=== PATIENT | female | born 1990 | race Hispanic/Latino ===

== ENCOUNTER 2017-12-17 14:12 | Emergency (ER) | payer BC ==
[~2017-12-17] VITALS: Ht 170.2 cm; Wt 136.1 kg
[2017-12-17] MEDS ORDERED: SODIUM CHLORIDE 0.9% 1000ML 1,000 ML IV STA (14:25)
[2017-12-17] MEDS ORDERED: KETOROLAC TROMETHAMINE 30 MG/ML VIAL IV STA (14:25)
[2017-12-17] MEDS ORDERED: DIPHENHYDRAMINE HCL INJ 50 MG/ML VIAL IV ONE (14:30)
[2017-12-17] MEDS ORDERED: METOCLOPRAMIDE HCL 10 MG/2ML VIAL IV ONE (14:30)
[2017-12-17 15:03] LABS: PREGNANCY TEST, URINE NEGATIVE (NEGATIVE)
[2017-12-17 15:07] LABS: CLARITY,URINE CLEAR (CLEAR); COLOR,URINE YELLOW (YELLOW)
[2017-12-17 15:08] LABS: BILIRUBIN,URINE NEGATIVE (NEGATIVE); KETONES,URINE NEGATIVE (NEGATIVE); LEUKOCYTE ESTERASE ,URINE TRACE (NEGATIVE); NITRITE,URINE NEGATIVE (NEGATIVE); PROTEIN,URINE DIPSTICK NEGATIVE (NEGATIVE); URINE UROBILINOGEN 0.2 mg/dL (0.2 - 1)
[2017-12-17 15:08] LABS: BASOPHILS # (AUTO) 0.1 (0.0-0.1); BASOPHILS % 0.4 % (0.0-1.0); EOSINOPHILS # (AUTO) 0.2 (0.0-0.4); EOSINOPHILS % 1.4 % (0.0-6.0); HEMATOCRIT 41.5 % (34.2-44.1); HEMOGLOBIN 13.9 g/dL (12.0-16.0); LYMPHOCYTES # (AUTO) 3.1 (1.0-3.2); LYMPHOCYTES % 27.5 % (18.0-39.1); MEAN CORPUSCULAR HEMOGLOBIN 30.9 pg (28-32); MEAN CORPUSCULAR HGB CONC 33.5 g/dL (31-35); MEAN CORPUSCULAR VOLUME 92.2 fL (81-99); MONOCYTES # (AUTO) 0.5 (0.2-0.8); MONOCYTES % 4.6 % (4.4-11.3); NEUTROPHILS # (AUTO) 7.4 (2.1-6.9); NEUTROPHILS % 65.8 % (38.7-80.0); PLATELET COUNT 332 x10e3/uL (140-360); RED CELL DISTRIBUTION WIDTH 12.1 % (11.7-14.4)
[2017-12-17 15:20] LABS: BACTERIA,URINE FEW /HPF; EPITHELIAL CELLS,URINE MODERATE /LPF
[2017-12-17 15:32] LABS: ALANINE AMINOTRANSFERASE 13 IU/L (0-55); ALBUMIN 3.7 g/dL (3.5-5.0); ALKALINE PHOSPHATASE 62 IU/L (40-150); ANION GAP 8.9 mmol/L (8-16); BLOOD UREA NITROGEN 7 mg/dL (7-26); BUN/CREATININE RATIO 11 (6-25); CALCIUM 9.5 mg/dL (8.4-10.2); CARBON DIOXIDE 26 mmol/L (22-29); CHLORIDE 107 mmol/L (98-107); CREATININE, SERUM 0.64 mg/dL (0.57-1.11); EST GLOMERULAR FILTRATION RATE > 60 ML/MIN (60-); GLUCOSE 96 mg/dL (74-118); POTASSIUM 3.9 mmol/L (3.5-5.1); SODIUM 138 mmol/L (136-145)
--- NOTE | 2017-12-17 15:54 | Diagnostic Imaging Report ---
History: Blurred vision Comparison studies: None Technique: Axial images were obtained from the skull base to the vertex. Coronal and sagittal reconstructions obtained from the axial data. Findings: Scalp/skull: No abnormalities. No fractures, blastic or lytic lesions. Extra-axial spaces: No masses. No fluid collections. Brain sulci: Appropriate for age. Ventricles: Normal in size and configuration. No hydrocephalus. Parenchyma: No abnormal densities. No masses, hemorrhage, acute or chronic cortical vascular insults. Sellar/suprasellar region: No abnormalities Craniocervical junction: Patent foramen magnum. No Chiari one malformation. IMPRESSION: No abnormalities . Signed by: DR Mario Puckett M.D. on 12/17/2017 3:51 PM
[2017-12-22] MEDS ORDERED: Acetamin/Butalbital/Caffeine PO (06:37)
== END 2017-12-17 17:56 | disposition home or self-care (01) ==
LOC: ER 14:12
DX: G44.211 Episodic tension-type headache, intractable (principal)
CPT/HCPCS: 36415; 70450; 80053; 81001; 81025; 85025; 87086; 99284; J1200; J1885; J2765; J7030

== ENCOUNTER 2017-12-19 20:56 | Inpatient (IN) | payer BC ==
[~2017-12-19] VITALS: Ht 165.1 cm; Wt 148.8 kg
--- OUTSIDE RECORDS SUMMARY | 2017-12-19 20:58 | XMS REPORT ---
Author [facility] Address Unknown Phone Unavailable Care Team Providers Care Web Design Instructor Name Role Phone PAT TOVAR Unavailable Unavailable Problems This patient has no known problems. Allergies, Adverse Reactions, Alerts This patient has no known allergies or adverse reactions. Medications This patient has no known medications. Results Test Description Test Time Test Comments Text Results Atomic Results Result Comments CT BRAIN WO [address] [address] Patient Name: JAYJAY BERNAL MR #: [id number] : 1990 Age/Sex: 27/F Req # : [id number] Adm Physician: Ordered by: PAT TOVAR MD Report #: [id number] Location: ER Room/Bed: Procedure: [id number] CT/CT BRAIN WO Exam Date: Exam Time: REPORT STATUS: Signed History: Blurred vision Comparison studies: None Technique: Axial images were obtained from the skull base to the vertex. Coronal and sagittal reconstructions obtained from the axial data. Findings: Scalp/skull: No abnormalities. No fractures, blastic or lytic lesions. Extra-axial spaces: No masses. No fluid collections. Brain sulci: Appropriate for age. Ventricles: Normal in size and configuration. No hydrocephalus. Parenchyma: No abnormal densities. No masses, hemorrhage, acute or chronic cortical vascular insults. Sellar/ suprasellar region: No abnormalities Craniocervical junction: Patent foramen magnum. No Chiari one malformation. IMPRESSION: No abnormalities . Signed by: DR Mario Puckett M.D. on 12/17/2017 3:51 PM Dictated By: MARIO WALLER MD [id number] Transcribed By: DELL on 12/17/17 978 COPY TO: PAT TOVAR MD
--- OUTSIDE RECORDS SUMMARY | 2017-12-19 20:58 | XMS REPORT | Continuity of Care Document ---
Author Author [facility] Organization [facility] Address [address] [place] [address] Phone Unavailable Care Team Providers Care Scientific Diver Name Role Phone NO, PCP PCP Unavailable Insurance Providers Guarantor Justina Bernal Address [address] [place] [address] Email PT DECLINED [facility]ayer [facility] Policy Number [id number] Subscriber's Name Regan Nolan Relationship 01 Group Number [id number] Group Name [employer] NOW Effective Date 17 Advance Directives Directive Response Recorded Date/Time Does the patient have an advance directive? No 12/17/17 4:39pm If yes, is advance directive on file with [facility]? No 12/17/17 4:39pm If not on file with [facility] will patient provide a copy? No 12/17/17 4:39pm Do you have a Directive to Physician? No 12/17/17 4:39pm Do you have a Medical Power of Overlock Elastic Attacher? No 12/17/17 4:39pm Do you have an out of hospital Do Not Resuscitate Order? No 12/17/17 4:39pm Do you have any special needs we should be aware of? No 12/17/17 4:39pm Do you have a support person here with you today? Yes 12/17/17 4:39pm Did patient receive Notice of Privacy Practices? Yes 12/17/17 4:39pm Did patient receive patient rights and responsibilities? Yes 12/17/17 4:39pm Problems No problem information available. Medications No medication information available. Social History Smoking Status Start Date Stop Date Never Smoker Hospital Discharge Instructions No hospital discharge instruction information available. Plan of Care Discharge Date 12/17/17 5:56pm Disposition HOME, SELF-CARE Condition at Discharge Stable Instructions/Education Provided Headache Forms Provided Work/School Excuse Prescriptions See Medication Section Referrals LYNN ARRIAGA MD Address: [address] [place] [address] [address] [place] [address] DAVIE CHANCE MD Address: [address] [place] [address] [address] [place] [address] Additional Instructions/Education 1. increase oral fluids 2. tylenol and motrin 3. follow up with your doctor / neurologist in 1-2 dyas without fail 4. return to ed as needed Functional Status No functional status information available. Allergies, Adverse Reactions, Alerts No known allergies. Immunizations No immunization information available. Vital Signs Acute Vital Signs Vital Response Date/Time Height 5 ft 7 in 12/17/2017 2:17pm Weight 300 lb 12/17/2017 2:17pm Body Mass Index 47.0 kg/m^2 12/17/2017 2:17pm Results Laboratory Results Test Name Result Units Flags Reference Collection Date/Time Result Date/ Time Comments White Blood Count 11.26 x10e3/uL H 4.8-10.8 12/17/2017 2:58pm 2017 3:08pm Red Blood Count 4.50 x10e6/uL 3.6-5.1 12/17/2017 2:58pm 12/17/2017 3: 08pm Hemoglobin 13.9 g/dL 12.0-16.0 12/17/2017 2:58pm 12/17/2017 3:08pm Hematocrit 41.5 % 34.2-44.1 12/17/2017 2:58pm 12/17/2017 3:08pm Mean Corpuscular Volume 92.2 fL 81-99 12/17/2017 2:58pm 12/17/2017 3: 08pm Mean Corpuscular Hemoglobin 30.9 pg 28-32 12/17/2017 2:58pm 12/17/2017 3:08pm Mean Corpuscular Hemoglobin Concent 33.5 g/dL 31-35 12/17/2017 2:58pm 12/17/2017 3:08pm Red Cell Distribution Width 12.1 % 11.7-14.4 12/17/2017 2:58pm 2017 3:08pm Platelet Count 332 x10e3/uL 140-360 12/17/2017 2:58pm 12/17/2017 3: 08pm Neutrophils (%) (Auto) 65.8 % 38.7-80.0 12/17/2017 2:58pm 12/17/2017 3: 08pm Lymphocytes (%) (Auto) 27.5 % 18.0-39.1 12/17/2017 2:58pm 12/17/2017 3: 08pm Monocytes (%) (Auto) 4.6 % 4.4-11.3 12/17/2017 2:58pm 12/17/2017 3: 08pm Eosinophils (%) (Auto) 1.4 % 0.0-6.0 12/17/2017 2:58pm 12/17/2017 3: 08pm Basophils (%) (Auto) 0.4 % 0.0-1.0 12/17/2017 2:58pm 12/17/2017 3:08pm IM GRANULOCYTES % 0.3 % 0.0-1.0 12/17/2017 2:58pm 12/17/2017 3:08pm Neutrophils # (Auto) 7.4 H 2.1-6.9 12/17/2017 2:58pm 12/17/2017 3: 08pm Lymphocytes # (Auto) 3.1 1.0-3.2 12/17/2017 2:58pm 12/17/2017 3:08pm Monocytes # (Auto) 0.5 0.2-0.8 12/17/2017 2:58pm 12/17/2017 3:08pm Eosinophils # (Auto) 0.2 0.0-0.4 12/17/2017 2:58pm 12/17/2017 3:08pm Basophils # (Auto) 0.1 0.0-0.1 12/17/2017 2:58pm 12/17/2017 3:08pm Absolute Immature Granulocyte (auto 0.03 x10e3/uL 0-0.1 12/17/2017 2: 58pm 12/17/2017 3:08pm Urine Color YELLOW YELLOW 12/17/2017 2:12/17/2017 3:08pm Urine Clarity CLEAR CLEAR 12/17/2017 2:2012/17/2017 3:08pm Urine Specific [place] 1.015 1.010-1.025 12/17/2017 2:202017 3:08pm Urine pH 8 H 5 - 7 12/17/2017 2:12/17/2017 3:08pm Urine Leukocyte Esterase TRACE H NEGATIVE 12/17/2017 2:2017 3:08pm Urine Nitrite NEGATIVE NEGATIVE 12/17/2017 2:12/17/2017 3:08pm Urine Protein NEGATIVE NEGATIVE 12/17/2017 2:2012/17/2017 3:08pm Urine Glucose (UA) NEGATIVE NEGATIVE 12/17/2017 2:pm 12/17/2017 3: 08pm Urine Ketones NEGATIVE NEGATIVE 12/17/2017 2:2012/17/2017 3:08pm Urine Urobilinogen 0.2 mg/dL 0.2 - 1 12/17/2017 2:12/17/2017 3: 08pm Urine Bilirubin NEGATIVE NEGATIVE 12/17/2017 2:12/17/2017 3: 08pm Urine Blood 2+ H NEGATIVE 12/17/2017 2:2012/17/2017 3:08pm Urine WBC NONE /HPF 0-5 12/17/2017 2:20pm 12/17/2017 3:20pm Urine RBC 6-10 /HPF H 0-5 12/17/2017 2:20pm 12/17/2017 3:20pm Urine Bacteria FEW /HPF NONE 12/17/2017 2:2012/17/2017 3:20pm Urine Epithelial Cells MODERATE /LPF NONE 12/17/2017 2:20pm 12/17/2017 3:20pm Urine Test NEGATIVE NEGATIVE 12/17/2017 2:2012/17/2017 3 :03pm Sodium Level 138 mmol/L 136-145 12/17/2017 2:58pm 12/17/2017 3:39pm Potassium Level 3.9 mmol/L 3.5-5.1 12/17/2017 2:58pm 12/17/2017 3:39pm Chloride Level 107 mmol/L 98-107 12/17/2017 2:58pm 12/17/2017 3:39pm Carbon Dioxide Level 26 mmol/L 22-29 12/17/2017 2:58pm 12/17/2017 3: 39pm Anion Gap 8.9 mmol/L 8-16 12/17/2017 2:58pm 12/17/2017 3:39pm Blood Urea Nitrogen 7 mg/dL 7-26 12/17/2017 2:58pm 12/17/2017 3:39pm Creatinine 0.64 mg/dL 0.57-1.11 12/17/2017 2:58pm 12/17/2017 3:39pm BUN/Creatinine Ratio 11 6-25 12/17/2017 2:58pm 12/17/2017 3:39pm Estimat Glomerular Filtration Rate > 60 ML/MIN 60- 12/17/2017 2:58pm 3:39pm Ranges were taken from the National Kidney Disease Education Program and the National Kidney Foundation literature. Reference ranges: 60 or greater: Normal 16-59 (for 3 consecutive months): Chronic kidney disease 15 or less: Kidney failure Glucose Level 96 mg/dL 74-118 12/17/2017 2:58pm 12/17/2017 3:39pm Calcium Level 9.5 mg/dL 8.4-10.2 12/17/2017 2:58pm 12/17/2017 3:39pm Total Bilirubin 0.4 mg/dL 0.2-1.2 12/17/2017 2:58pm 12/17/2017 3:39pm Aspartate Amino Transf (AST/SGOT) 10 IU/L 5-34 12/17/2017 2:58pm 2017 3:39pm Alanine Aminotransferase (ALT/SGPT) 13 IU/L 0-55 12/17/2017 2:58pm 05/2018 3:39pm Total Protein 7.5 g/dL 6.5-8.1 12/17/2017 2:58pm 12/17/2017 3:39pm Albumin 3.7 g/dL 3.5-5.0 12/17/2017 2:58pm 12/17/2017 3:39pm Globulin 3.8 g/dL H 2.3-3.5 12/17/2017 2:58pm 12/17/2017 3:39pm Albumin/Globulin Ratio 1.0 0.8-2.0 12/17/2017 2:58pm 12/17/2017 3: 39pm Alkaline Phosphatase 62 IU/L 40-150 12/17/2017 2:58pm 12/17/2017 3: 39pm Procedures Procedure Status Date Provider(s) Computed tomography of brain without radiopaque contrast Active 12/17/17 PAT TOVAR MD Encounters Encounter Location Arrival/Admit Date Discharge/Depart Date Attending Provider Departed Emergency Room [facility] 12/17/17 2:12pm 5:56pm PAT TOVAR MD
[2017-12-19] MEDS: SODIUM CHLORIDE 0.9% 1000ML 1,000 ML IV SCH (21:50)
[2017-12-19 21:52] LABS: BASOPHILS % 0.3 % (0.0-1.0); EOSINOPHILS # (AUTO) 0.2 (0.0-0.4); EOSINOPHILS % 1.6 % (0.0-6.0); HEMATOCRIT 41.6 % (34.2-44.1); HEMOGLOBIN 13.8 g/dL (12.0-16.0); LYMPHOCYTES # (AUTO) 3.9 (1.0-3.2); LYMPHOCYTES % 28.9 % (18.0-39.1); MEAN CORPUSCULAR HEMOGLOBIN 30.7 pg (28-32); MEAN CORPUSCULAR HGB CONC 33.2 g/dL (31-35); MEAN CORPUSCULAR VOLUME 92.4 fL (81-99); MONOCYTES # (AUTO) 0.7 (0.2-0.8); MONOCYTES % 5.1 % (4.4-11.3); NEUTROPHILS # (AUTO) 8.7 (2.1-6.9); NEUTROPHILS % 63.7 % (38.7-80.0); PLATELET COUNT 327 x10e3/uL (140-360); RED CELL DISTRIBUTION WIDTH 12.1 % (11.7-14.4)
[2017-12-19 22:01] LABS: INR 1.18; MAGNESIUM 1.9 MG/DL (1.3-2.1); PROTHROMBIN TIME 14.1 seconds (11.9-14.5)
[2017-12-19 22:06] LABS: PARTIAL THROMBOPLASTIN TIME 33.3 seconds (23.8-35.5)
[2017-12-19 22:08] LABS: ALANINE AMINOTRANSFERASE 14 IU/L (0-55); ALBUMIN 3.8 g/dL (3.5-5.0); ALKALINE PHOSPHATASE 62 IU/L (40-150); ANION GAP 12.6 mmol/L (8-16); BLOOD UREA NITROGEN 14 mg/dL (7-26); BUN/CREATININE RATIO 21 (6-25); CALCIUM 9.5 mg/dL (8.4-10.2); CARBON DIOXIDE 23 mmol/L (22-29); CHLORIDE 105 mmol/L (98-107); CREATINE KINASE 50 IU/L (29-168); CREATININE, SERUM 0.67 mg/dL (0.57-1.11); EST GLOMERULAR FILTRATION RATE > 60 ML/MIN (60-); GLUCOSE 98 mg/dL (74-118); POTASSIUM 3.6 mmol/L (3.5-5.1); SODIUM 137 mmol/L (136-145)
[2017-12-19 22:29] LABS: THYROID STIMULATING HORMONE 3.656 uIU/mL (0.350-4.940)
[2017-12-19 23:09] VITALS: BP 139/68
[2017-12-19] MEDS ORDERED: GADOBENATE DIMEGLUMINE 1 ML IV ONE ×2 (23:45)
[2017-12-20] VITALS (8 sets, daily range): BP systolic 120–141; BP diastolic 67–90
--- NOTE | 2017-12-20 00:54 | Diagnostic Imaging Report ---
History: Double vision Comparison studies: Head CT on 518 Technique: Pre-contrast: Sagittal T2; axial T1-IR, SWI, DWI, T2 FLAIR Post-contrast: Axial, coronal and sagittal T1. Intravenous contrast: 27 cc of MultiHance Findings: Scalp: No abnormal signal. No masses. Bone marrow: Normal in signal intensity. Extra-axial: No masses, fluid collections or hemorrhage. Brain sulci: Appropriate for age. Ventricles: Normal in size . No hydrocephalus. Parenchyma: No abnormal signal intensities. No masses, hemorrhage, acute or chronic vascular insults. No enhancing abnormalities. Suprasellar region: No abnormalities. Craniocervical junction: No abnormalities. Patent foramen magnum. No Chiari one malformation.. Vessels: Normal flow-voids in the arteries and sinuses. IMPRESSION: No abnormalities. No changes when compared to the head CT on 12/17/2017 Signed by: Dr. Eugene Moraes M.D. on 12/20/2017 12:50 AM
[2017-12-20] MEDS: ACETAMIN/BUTALBITAL/CAFFEINE TAB PO PRN (07:03)
[2017-12-20] MEDS: SODIUM CHLORIDE 0.9% 1000ML 1,000 ML IV SCH (10:52)
[2017-12-20] MEDS ORDERED: METHYLPREDNISOLONE SOD SUCC 1,000 MG/8 ML VIAL IV STA (11:08)
[2017-12-20] MEDS: METHYLPREDNISOLONE SOD SUCC 1,000 MG in SODIUM CHLORIDE 0.9% 250ML 250 ML IV SCH (13:43)
[2017-12-20 14:05] LABS: CLARITY,URINE SL CLOUDY (CLEAR); COLOR,URINE YELLOW (YELLOW)
[2017-12-20 14:06] LABS: BILIRUBIN,URINE NEGATIVE (NEGATIVE); KETONES,URINE NEGATIVE (NEGATIVE); LEUKOCYTE ESTERASE ,URINE NEGATIVE (NEGATIVE); NITRITE,URINE NEGATIVE (NEGATIVE); PROTEIN,URINE DIPSTICK NEGATIVE (NEGATIVE); URINE UROBILINOGEN 0.2 mg/dL (0.2 - 1)
[2017-12-20 14:14] LABS: BACTERIA,URINE FEW /HPF; EPITHELIAL CELLS,URINE FEW /LPF; WBC,URINE (MAN) 0-5 /HPF (0-5)
--- NOTE | 2017-12-20 14:16 | Consultation ---
DATE OF CONSULTATION: December 20, 2017 NEUROLOGY CONSULTATION HISTORY OF PRESENT ILLNESS: Ms. Fajardo is a 27-year-old sriot-ifcc-yyeahhgp woman with past medical history significant for asthma in childhood, who presented to the emergency center on the evening of December 19, 2017, with double vision. Ms. Fajardo was seen in the emergency center at [facility] 2 days prior to admission with a severe headache which is described as follows: The pain was located across the forehead and occiput. The pain was described as throbbing and rated an 8 out of 10. Associated with the headache were photophobia, phonophobia, nausea and vomiting, and dizziness. Ms. Fajardo endorses mild double vision associated with the headache as well. Ms. Fajardo does not endorse a prior history of severe headaches. There is no known family history of migraine or other primary headache disorders. In the emergency center on December 17, 2017, the patient's neurological examination was documented as being nonfocal. A CT of the brain without contrast was performed and did not show evidence of recent large territorial ischemia, hemorrhage, mass or mass effect. Ms. Fajardo was treated with intravenous fluids and intravenous Toradol. Her symptoms improved, and she was discharged to home. Over the next 2 days, Ms. Fajardo did not experience a recurrence of the severe headache or its associated symptoms. However, the mild diplopia she first experienced on December 17, 2017, progressively worsened. On the morning of admission, December 19, 2017, the patient awoke with binocular diplopia. Ms. Fajardo reports the images appear to be split; these split images appear side by side. Covering either eye leads to resolution of the diplopia. When she awoke with double vision, the patient proceeded to her bathroom to look at her face, more specifically her eyes, in the mirror. At that time, she noticed her right eye had turned inward towards her nose. Concerned regarding her symptoms, the patient had a family member drive her to the emergency center at [facility] for further evaluation. Upon arrival in the emergency center, the patient was afebrile with a blood pressure of 173/87 and a pulse of 67 beats per minute. Her neurological examination was significant for a partial right cranial nerve 6 palsy. Ms. Fajardo was admitted to the hospital for further evaluation and treatment. Ms. Fajardo experienced a headache following the MRI of the brain with and without contrast. However, this headache was different from the headache she experienced 2 days prior to admission. The patient describes the headache as diffuse pressure and rates it a 3 out of 10. There were no vascular symptoms associated with the headache. Ms. Fajardo received a single dose of Fioricet, and the headache resolved. REVIEW OF SYSTEMS: Nausea, vomiting, double vision, neck pain, headache, photophobia, phonophobia, dizziness. Otherwise, the 12-point review of systems was negative. PAST MEDICAL HISTORY: The patient endorses a history of asthma during childhood and adolescence but has not experienced an asthma attack in "years." Morbid obesity. PAST SURGICAL HISTORY: None. PAST HOSPITALIZATIONS: None. FAMILY HISTORY: Ms. Fajardo is estranged from her father; the medical histories of her father and his relatives are unknown. The patient's maternal grandparents are alive and healthy. Her mother is from a stroke. Her mother had a history of other blood clots as well. The patient has 2 sisters and 3 brothers. All are alive and healthy. Ms. Fajardo has 1 son, who is healthy. SOCIAL HISTORY: The patient is . She attended school through the 12th grade but did not graduate. Ms. Fajardo is a bxol-wv-zwgh parent. She does not report current or prior tobacco, alcohol, or recreational drug use. HOME MEDICATIONS: None. ALLERGIES: NO KNOWN DRUG ALLERGIES. NO KNOWN FOOD ALLERGIES. NO KNOWN ALLERGIES TO LATEX. NO KNOWN ALLERGIES TO IODINE OR OTHER CONTRAST MATERIALS. PHYSICAL EXAMINATION VITAL SIGNS: Height 65 inches, weight 325 pounds, BMI 54.6 kg per meter squared, blood pressure 120/79 mmHg, pulse 65 beats per minute, respiratory rate 18 breaths per minute, oxygen saturation 97% on room air. GENERAL: The patient is awake and alert, does not appear distressed. Obese. HEENT: Normocephalic, atraumatic. Pupils are equal, round, and reactive to light. Moist mucous membranes. NECK: Supple. No appreciable thyromegaly. No appreciable carotid bruits. CARDIOVASCULAR: S1, S2, regular rate and rhythm. No murmurs, rubs, or gallops. RESPIRATORY: Clear to auscultation bilaterally. No wheezes, rhonchi, or rales. EXTREMITIES: The skin is warm and dry. No clubbing, cyanosis, or edema. The posterior tibial and dorsalis pedis pulses are 2+ and symmetric. SKIN: No rashes or lesions. NEUROLOGIC MEMORY/ATTENTION: The patient is awake and alert, oriented to person, place, time, and situation. CRANIAL NERVES: Cranial nerve 1--Not tested. Cranial nerves 2, 3, 4, and 6--Pupils are equal and round, react briskly to light (from 6 mm to 3 mm). Extraocular movements are intact except as follows: Esotropia of the right eye with forward gaze, incomplete abduction of the right eye. No nystagmus. Cranial nerve 5--Sensation to light touch and pinprick is intact in the bilateral V1 through V3 distributions. Strength of the temporalis and masseter muscles is within normal limits. Cranial nerve 7--The face is symmetric, as are all facial movements. Strength is within normal limits. Cranial nerve 8--Hearing is intact to finger rub bilaterally. Cranial nerve 9, 10--The soft palate elevates equally and symmetrically. Cranial nerve 11--Normal strength of the bilateral sternocleidomastoid and trapezius muscles. Cranial nerve 12--The tongue protrudes midline and moves symmetrically from side to side. STRENGTH: Bulk is normal, and strength is 5/5 in the bilateral deltoids, biceps, triceps, wrist flexors and extensors, finger flexors and extensors, intrinsic hand muscles, hip flexors, knee flexors and extensors, ankle dorsiflexion and plantarflexion, and intrinsic foot muscles. Tone is normal. DTRS: Deep tendon reflexes are 2+ and symmetric at the triceps, biceps, brachial radialis, patellas, and Achilles. Plantar responses are flexor bilaterally. Absent clonus. SENSATION: Sensation is intact to light touch and pinprick in both arms and both legs. CEREBELLAR: Yvyjsb-iipz-vnfgyn and heel-gaviria movements are intact without dysmetria or other impairment. Rapid alternating movements are intact. GAIT: Deferred. SPEECH: Spontaneous speech is normal without appreciable dysarthria or aphasia. Repetition is intact. INVOLUNTARY MOVEMENTS: None. PRONATOR DRIFT: None. LABORATORY DATA: Sodium 137, potassium 3.6, chloride 105, carbon dioxide 23, anion gap 12.6, BUN 14, creatinine 0.67, estimated GFR greater than 60, WTU-bq-wzqfxyscvi ratio 21, glucose 98, calcium 9.5, magnesium 1.9. Total bilirubin 0.3, AST 11, ALT 14, alkaline phosphatase 63. Total protein 7.7, albumin 3.8, globulin 3.9, mxfzupy-xb-qwkfcjdd ratio 1.0. Creatine kinase 50, CK-MB 0.60, troponin I less than 0.001. TSH 3.656. The CBC with differential and platelets reveals a white blood cell count of 13.63 with 63.7% neutrophils, 28.9% lymphocytes, 5.1% monocytes, 1.6% eosinophils and 0.3% basophils. The hemoglobin and hematocrit are 13.8 and 41.6, respectively. The platelet count is 327. PT 14.1, INR 1.18, PTT 33.3. A urine test was negative. DIAGNOSTIC STUDIES EKG December 19, 2017: Normal sinus rhythm at 63 beats per minute. MRI of brain without contrast December 19, 2017: On my review, there is no evidence of recent large territorial ischemia, hemorrhage, mass, or mass effect. Cerebral volume is normal for age. There are no findings compatible with chronic small-vessel ischemic disease. There is no enhancement of the right 6th cranial nerve. ASSESSMENT AND PLAN: Ms. Fajardo is a 27-year-old nnjzw-ajqv-tdhfadom woman with past medical history significant for asthma with occurrence of migraine 2 days prior to admission, admitted with partial right cranial nerve 6 palsy. The patient's neurological examination is significant for a partial right cranial nerve 6 palsy. Otherwise, her neurological examination is unremarkable. The patient's laboratory data and diagnostic studies have been reviewed and are documented above. Ms. 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 Despite a normal MRI of the brain with and without contrast, multiple case studies have demonstrated inflammation of the cranial nerves, usually either cranial nerve 6 or cranial nerve 3, with ophthalmoplegic migraine. Recommendations are as follows: 1. Ms. Fajardo will be treated with Solu-Medrol 1000 mg IV daily for 3 days in an effort to quicken resolution of her symptoms. 2. Cranial nerve palsies are often seen as a complication of diabetes mellitus. Though the patient has no known history of prediabetes or diabetes, a hemoglobin A1c will be ordered for further evaluation. 3. Defer treatment of the remaining medical comorbidities to the primary and other services following the patient. Thank you for this consultation. I will continue to follow the patient while she remains in the hospital. Time spent: 70 minutes. Job#: [id number] EV MTDD
--- NOTE | 2017-12-20 22:17 | History and Physical ---
PRIMARY CARE PHYSICIAN: None. CHIEF COMPLAINT: Double vision. HISTORY OF PRESENT ILLNESS: This is a 27-year-old woman with no medical history, now developing double vision for the past 4 days. She came to the emergency room, sent home with suspicion of migraine, now patient represented with symptoms. She had headache in the forehead and back region. Imaging, brain MRI showed no abnormalities. Patient is admitted for further evaluation and management. Denies any nausea, vomiting. Denies any other symptoms. Denies any recent infection or trauma. PAST MEDICAL HISTORY: Asthma. PAST SURGICAL HISTORY: None. ALLERGIES: PER ELECTRONIC MEDICAL RECORD. FAMILY/SOCIAL HISTORY: Patient is . She has 1 child. No alcohol, illicits, or cigarettes. MEDICATIONS: None. REVIEW OF SYSTEMS: Denies any dizziness, chest pain. PHYSICAL EXAMINATION: VITAL SIGNS: Reviewed. GENERAL APPEARANCE: Tired-appearing woman resting in bed. HEENT: Anicteric. CARDIOVASCULAR: Normal S1 and S2. LUNGS: Moderate breath sounds. ABDOMEN: Soft, nontender, nondistended. EXTREMITIES: No edema or calf tenderness. NEUROLOGICAL: Alert and oriented x3. Moving all extremities. She has no motor deficit. Motor strength 5/5 in all extremities. No visual field deficits. She does have right pupil rotated towards the nasal region. There is some irregular movement of the eye upon testing. When she is looking straight ahead, the right pupil is slightly rotated to the nasal region while the left eye pupil looks straight ahead. When she covers one eye, double vision disappears. With both eyes open, double vision persists. SKIN: Dry. PSYCHIATRIC: Normal affect. LABS: Reviewed. MEDICATIONS: Reviewed. ASSESSMENT AND PLAN: This is a 27-year-old woman. 1. Cranial nerve palsy. Likely nerve . Continue high-dose steroids per Dr. Stringer. Sedimentation rate was normal. Will obtain a C-reactive protein. 2. Morbid obesity. Screen for diabetes. 3. Leukocytosis. Urinalysis is negative. There are no signs of infection. We will reassess in the morning. 4. Prophylaxis. Will use Pepcid. Will add Lovenox. 5. Disposition. Monitor closely and reassess in the morning. Job#: [id number]
[2017-12-21] VITALS (8 sets, daily range): BP systolic 122–139; BP diastolic 59–71
[2017-12-21] MEDS: ACETAMIN/BUTALBITAL/CAFFEINE TAB PO PRN ×3 (00:04→21:01)
[2017-12-21] MEDS: SODIUM CHLORIDE 0.9% 1000ML 1,000 ML IV SCH (01:05)
[2017-12-21 07:01] LABS: BASOPHILS % 0.1 % (0.0-1.0); HEMATOCRIT 43.8 % (34.2-44.1); HEMOGLOBIN 14.7 g/dL (12.0-16.0); LYMPHOCYTES # (AUTO) 1.6 (1.0-3.2); LYMPHOCYTES % 11.1 % (18.0-39.1); MEAN CORPUSCULAR HGB CONC 33.6 g/dL (31-35); MEAN CORPUSCULAR VOLUME 92.4 fL (81-99); MONOCYTES # (AUTO) 0.1 (0.2-0.8); MONOCYTES % 0.8 % (4.4-11.3); NEUTROPHILS # (AUTO) 12.7 (2.1-6.9); NEUTROPHILS % 87.4 % (38.7-80.0); PLATELET COUNT 337 x10e3/uL (140-360); RED BLOOD COUNT 4.74 x10e6/uL (3.6-5.1)
[2017-12-21 07:22] LABS: ANION GAP 14.9 mmol/L (8-16); BLOOD UREA NITROGEN 10 mg/dL (7-26); BUN/CREATININE RATIO 15 (6-25); CALCIUM 9.5 mg/dL (8.4-10.2); CARBON DIOXIDE 21 mmol/L (22-29); CHLORIDE 107 mmol/L (98-107); CREATININE, SERUM 0.67 mg/dL (0.57-1.11); EST GLOMERULAR FILTRATION RATE > 60 ML/MIN (60-); GLUCOSE 120 mg/dL (74-118); POTASSIUM 3.9 mmol/L (3.5-5.1); SODIUM 139 mmol/L (136-145)
[2017-12-21 07:46] LABS: CHOL/HDL RATIO 3.3 (3.0-3.6)
--- NOTE | 2017-12-21 07:47 | Progress Note ---
DATE: December 21, 2017 TIME: 7:14 a.m. OVERNIGHT: No events. REVIEW OF SYSTEMS: Denies any dizziness. PHYSICAL EXAMINATION VITAL SIGNS: Reviewed. GENERAL: A tired-appearing woman resting in bed. HEENT: Anicteric. CARDIOVASCULAR: Normal S1 and S2. LUNGS: Moderate breath sounds. ABDOMEN: Soft, nontender and nondistended. EXTREMITIES: No edema. SKIN: Dry. PSYCHIATRIC: Flat affect. NEUROLOGICAL: Alert and oriented times 3. Moving extremities. Nonfocal. No visual field deficit. She does have right eye medially rotated. LABS: Reviewed. MEDICATIONS: Reviewed. ASSESSMENT: A 27-year-old woman with: 1. Cranial nerve palsy: Continue high dose steroids. Follow up CRP. 2. Morbid obesity. 3. Leukocytosis. PLAN 1. Follow up labs. 2. Hemoglobin A1c 5. Does not have diabetes. 3. Follow up C-reactive protein. 4. Follow up lipid panel. 5. Discharge planning. Job#: [id number] ME
[2017-12-21] MEDS: METHYLPREDNISOLONE SOD SUCC 1,000 MG in SODIUM CHLORIDE 0.9% 250ML 250 ML IV SCH (08:23)
[2017-12-21] MEDS: FAMOTIDINE 20 MG TAB PO SCH ×2 (08:23→16:59)
[2017-12-22] VITALS: BP 126/63
[2017-12-22 04:00] VITALS: BP 112/58
[2017-12-22] MEDS ORDERED: Acetamin/Butalbital/Caffeine PO (06:37)
[2017-12-22 08:14] VITALS: BP 130/68
[2017-12-22] MEDS: FAMOTIDINE 20 MG TAB PO SCH (08:17)
[2017-12-22] MEDS: METHYLPREDNISOLONE SOD SUCC 1,000 MG in SODIUM CHLORIDE 0.9% 250ML 250 ML IV SCH (09:06)
[2017-12-22] MEDS: ACETAMIN/BUTALBITAL/CAFFEINE TAB PO PRN (09:12)
[2017-12-22 12:06] VITALS: BP 136/66
== END 2017-12-22 11:45 | disposition home or self-care (01) | DRG 103 ==
LOC: ER 20:56 → MED/SURG 21:58
PROVIDERS: ADMIT Internal Medicine; ATTEND Internal Medicine
DX: G43.B0 Ophthalmoplegic migraine, not intractable (principal); Z68.43 Body mass index [BMI] 50.0-59.9, adult; H49.21 Sixth [abducent] nerve palsy, right eye; E66.01 Morbid (severe) obesity due to excess calories; H53.2 Diplopia; D72.829 Elevated white blood cell count, unspecified; J45.909 Unspecified asthma, uncomplicated
CPT/HCPCS: 36415; 70553; 80048; 80053; 80061; 81001; 81025; 82550; 82553; 83036; 83735; 84443; 84484; 85025; 85610; 85651; 85730; 86140; 87086; 93005; 99284; J2930; J7030; J7050

== ENCOUNTER 2024-03-20 02:18 | Emergency (ER) | payer SELFPAY ==
[~2024-03-20] VITALS: Ht 165.1 cm; Wt 159.8 kg
[~2024-03-20 02:18] MED LIST: Acetamin/Butalbital/Caffeine PO
[2024-03-20 02:23] VITALS: TEMP 98.6
[2024-03-20 02:48] LABS: BASOPHILS # (AUTO) 0.1 (0.0-0.1); BASOPHILS % 0.7 % (0.0-1.0); EOSINOPHILS # (AUTO) 0.2 (0.0-0.4); EOSINOPHILS % 2.2 % (0.0-6.0); HEMATOCRIT 45.1 % (34.2-44.1); HEMOGLOBIN 14.6 g/dL (12.0-16.0); LYMPHOCYTES # (AUTO) 3.4 (1.0-3.2); LYMPHOCYTES % 37.7 % (18.0-39.1); MEAN CORPUSCULAR HEMOGLOBIN 30.6 pg (28-32); MEAN CORPUSCULAR HGB CONC 32.4 g/dL (31-35); MEAN CORPUSCULAR VOLUME 94.5 fL (81-99); MONOCYTES # (AUTO) 0.4 (0.2-0.8); MONOCYTES % 4.7 % (4.4-11.3); NEUTROPHILS # (AUTO) 4.9 (2.1-6.9); NEUTROPHILS % 54.3 % (38.7-80.0); PLATELET COUNT 315 x10e3/uL (140-360); RED BLOOD COUNT 4.77 x10e6/uL (3.6-5.1); RED CELL DISTRIBUTION WIDTH 12.3 % (11.7-14.4); WHITE BLOOD COUNT 8.96 x10e3/uL (4.8-10.8)
[2024-03-20 03:03] LABS: ALBUMIN 4.5 g/dL (3.5-5.0); ALBUMIN/GLOBULIN RATIO 1.3 (0.8-2.0); ANION GAP 14.1 mmol/L (8-16); BILIRUBIN,TOTAL 0.3 mg/dL (0.2-1.2); CALCIUM 9.6 mg/dL (8.4-10.2); CREATININE, SERUM 0.74 mg/dL (0.57-1.11); POTASSIUM 4.1 mmol/L (3.5-5.1); TOTAL PROTEIN 7.9 g/dL (6.5-8.1)
[2024-03-20 03:20] VITALS: PULSE 73; RESP 19; O2SAT 100
== END 2024-03-20 03:20 | disposition home or self-care (01) ==
LOC: ER 02:27
DX: R20.0 Anesthesia of skin (principal); R20.2 Paresthesia of skin; R03.0 Elevated blood-pressure reading, without diagnosis of hypertension; J45.909 Unspecified asthma, uncomplicated
CPT/HCPCS: 36415; 80053; 83735; 85025; 99283